=== PATIENT | male | born 1990 ===

== ENCOUNTER 2019-02-02 01:12 | Emergency (ER) | payer SELFPAY ==
[2019-02-02 01:57] VITALS: BP 145/63; PULSE 67; TEMP 98.3
[2019-02-02] MEDS ORDERED: Sodium Chloride 0.9% 1,000 ML IV STA (03:22)
[2019-02-02 03:53] VITALS: RESP 17; O2SAT 98
[2019-02-02 03:59] LABS: VENOUS BLOOD GAS BASE EXCESS 3.6 mmol/L (0.0-2.0); VENOUS BLOOD GAS PCO2 59 mmHg (40-60); VENOUS BLOOD GAS PO2 25 mm/Hg (30-55); VENOUS BLOOD PH 7.33 (7.32-7.43)
[2019-02-02 04:07] LABS: BASO % 0.4 % (0.0-2.0); EOS # 0.1 K/uL (0.0-0.7); EOS % 1.1 % (0.0-4.0); HEMOGLOBIN 14.8 g/dL (12.0-18.0); LYMPH # 2.1 K/uL (1.0-4.3); LYMPH % 23.5 % (20.0-40.0); MEAN CELL VOLUME 86.4 fl (80.0-94.0); MEAN CORPUSCULAR HEMOGLOBIN 29.6 pg (27.0-31.0); MEAN CORPUSCULAR HGB CONC 34.2 g/dL (33.0-37.0); MEAN PLATELET VOLUME 10.4 fl (7.2-11.7); MONO # 0.4 K/uL (0.0-0.8); NEUT # 6.5 K/uL (1.8-7.0); NRBC % 0.1 % (0.0-0.0); RBC 4.99 Mil/uL (4.40-5.90); RED CELL DISTRIBUTION WIDTH 13.5 % (11.5-14.5); WHITE BLOOD COUNT 9.1 K/uL (4.8-10.8)
[2019-02-02 04:16] LABS: ALB/GLOB RATIO 1.5 (1.0-2.1); ALBUMIN 4.7 g/dL (3.5-5.0); ALT/SGPT 37 U/L (21-72); AST/SGOT 31 U/L (17-59); BLOOD UREA NITROGEN 13 mg/dl (9-20); CALCIUM 9.4 mg/dL (8.4-10.2); GFR NON-AFRICAN AMERICAN > 60
--- NOTE | 2019-02-02 04:24 | ED PDOC ---
HPI: General Adult Time Seen by Provider: 02/02/19 03:11 Chief Complaint (Nursing): Dizziness/Lightheaded Chief Complaint (Provider): Dizziness History Per: Patient, Airport Representative ([facility] #[id number]) History/Exam Limitations: no limitations Onset/Duration Of Symptoms: Days Current Symptoms Are (Timing): Still Present Additional Complaint(s): 28 year old male presents to the ED for an evaluation of dizziness onset for 3 weeks. Patient reports the dizziness worsens throughout the day with light headedness and he almost fainted tonight. He states he has not had these symptom s before. Currently, he feels unsteady walking. Otherwise, he denies syncope, loss of consciousness of chest pain. PMD: no family provider Past Medical History Reviewed: Historical Data, Nursing Documentation, Vital Signs Vital Signs: Last Vital Signs Temp 98.3 F 02/02/19 01:55 Pulse 67 02/02/19 01:55 Resp 17 02/02/19 01:55 BP 145/63 02/02/19 01:55 Pulse Ox 98 02/02/19 01:55 Primary Care Provider: FAMILY PROVIDER,NO - Medical History PMH: No Chronic Diseases - Family History Family History: States: Unknown Family Hx - Allergies Allergies/Adverse Reactions: Allergies Allergy/AdvReac Type Severity Reaction Status Date / Time No Known Allergies Allergy Verified 02/02/19 01:57 Review of Systems ROS Statement: Except As Marked, All Systems Reviewed And Found Negative Cardiovascular: Positive for: Light Headedness. Negative for: Chest Pain Neurological: Positive for: Dizziness. Negative for: Headache Physical Exam - Reviewed Nursing Documentation Reviewed: Yes Vital Signs Reviewed: Yes - Physical Exam Appears: Positive for: Non-toxic, No Acute Distress. Negative for: Well (tired and weak ) Head Exam: Positive for: ATRAUMATIC, NORMAL INSPECTION, NORMOCEPHALIC Skin: Positive for: Normal Color, Warm, Dry. Negative for: Rash Eye Exam: Positive for: EOMI, Normal appearance, PERRL ENT: Positive for: Normal ENT Inspection Neck: Positive for: Normal, Painless ROM, Supple. Negative for: Decreased ROM Cardiovascular/Chest: Positive for: Regular Rate, Rhythm. Negative for: Murmur Respiratory: Positive for: Normal Breath Sounds. Negative for: Respiratory Distress Gastrointestinal/Abdominal: Positive for: Normal Exam, Soft. Negative for: Tenderness Back: Positive for: Normal Inspection Extremity: Positive for: Normal ROM. 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 Negative for: Mood/Affect, Lethargic, Listless, Motor/Sensory Deficits, Facial Droop - Laboratory Results Result Diagrams: 02/02/19 03:44 02/02/19 03:44 Lab Results: pO2 25 mm/Hg (30-55) L 02/02/19 03:56 VBG pH 7.33 (7.32-7.43) 02/02/19 03:56 VBG pCO2 59 mmHg (40-60) 02/02/19 03:56 VBG HCO3 26.2 mmol/L 02/02/19 03:56 VBG Total CO2 32.9 mmol/L (22-28) H 02/02/19 03:56 VBG O2 Sat (Calc) 46.0 % (40-65) 02/02/19 03:56 VBG Base Excess 3.6 mmol/L (0.0-2.0) H 02/02/19 03:56 VBG Potassium 4.5 mmol/L (3.6-5.2) 02/02/19 03:56 Sodium 135.0 mmol/L (132-148) 02/02/19 03:56 Chloride 102.0 mmol/L (98-107) 02/02/19 03:56 Glucose 96 mg/dL (75-110) 02/02/19 03:56 Lactate 1.0 mmol/L (0.7-2.1) 02/02/19 03:56 FiO2 21.0 % 02/02/19 03:56 Total Bilirubin 0.6 mg/dl (0.2-1.3) 02/02/19 03:44 AST 31 U/L (17-59) 02/02/19 03:44 ALT 37 U/L (21-72) 02/02/19 03:44 Alkaline Phosphatase 54 U/L (38-126) 02/02/19 03:44 Total Protein 7.8 G/DL (6.3-8.2) 02/02/19 03:44 Albumin 4.7 g/dL (3.5-5.0) 02/02/19 03:44 Globulin 3.1 gm/dL (2.2-3.9) 02/02/19 03:44 Albumin/Globulin Ratio 1.5 (1.0-2.1) 02/02/19 03:44 - ECG O2 Sat by Pulse Oximetry: 98 (RA) Pulse Ox Interpretation: Normal Medical Decision Making Medical Decision Making: Time: 320 Impression: workup for 3 weeks of dizziness with increased syncopal episodes. Will order labs and CT of head Plan: Venous blood gas shock Head w/o contrast CT EKG CMP Troponin CBC w/ differential Normal saline 1000 mls/hr Re-evaluation 0525 CT SCAN OF THE BRAIN WITHOUT IV CONTRAST CLINICAL INDICATION: Dizziness and syncope. TECHNIQUE: Axial and reformatted sagittal and coronal images of the brain obtained without IV contrast administration. Normal size of the ventricles and extra-axial spaces for the patient's age. Normal white matter tracts of the supratentorial brain. Normal basal ganglia and thalami. Normal brainstem. Normal cerebellum. There is no demonstrated extra-axial, intraparenchymal, or intraventricular hemorrhage. There are no findings of an acute ischemic infarction. Normal calvarium. There is no demonstrated fracture. Normal soft tissue structures. Normal visualized paranasal sinuses. IMPRESSION: Normal unenhanced CT scan of the brain. Electronically signed on February 02, 2019 5:25:10 AM EDT by: Lorin Shah M.D., Certified by ABR, MSK, Neuroradiology 0533 Upon provider evaluation patient is medically stable, and requires no further treatment in the ED at this time. Patient will be discharged. Counseling was provided and all questions were answered regarding diagnosis and need for follow up with neurologist and PMD. There is agreement to discharge plan. Return if symptoms persist or worsen. Scribe Attestation: Documented by Ravin Tim, acting as a scribe for Shanae Becker MD Provider Scribe Attestation: All medical record entries made by the Scribe were at my direction and personally dictated by me. I have reviewed the chart and agree that the record accurately reflects my personal performance of the history, physical exam, medical decision making, and the department course for this patient. I have also personally directed, reviewed, and agree with the discharge instructions and disposition. Disposition - Clinical Impression Clinical Impression: Dizziness of unknown cause - Disposition Referrals: [facility] [Outside] Gutierrez Sweeney MD [Medical Doctor] - Disposition: Routine/Home Disposition Time: 05:33 Condition: STABLE Additional Instructions: Follow up with the medical clinic and with the neurologist. Return to the emergency department if symptoms worsen of if new symptoms develop. Instructions: Dizziness, Nonvertigo, (DC) Forms: [facility] (Uzbek) Print Language: MALAY
--- NOTE | 2019-02-02 07:19 | CT ---
Date of service: 02/02/2019 PROCEDURE: CT HEAD WITHOUT CONTRAST. HISTORY: dizziness/syncope COMPARISON: None available. TECHNIQUE: Axial computed tomography images were obtained through the head/brain without intravenous contrast. Radiation dose: Total exam DLP = 824.77 mGy-cm. This CT exam was performed using one or more of the following dose reduction techniques: Automated exposure control, adjustment of the mA and/or kV according to patient size, and/or use of iterative reconstruction technique. FINDINGS: HEMORRHAGE: No intracranial hemorrhage. BRAIN: No mass effect or edema. No atrophy or chronic microvascular ischemic changes. VENTRICLES: Unremarkable. No hydrocephalus. CALVARIUM: Unremarkable. PARANASAL SINUSES: Unremarkable as visualized. No significant inflammatory changes. MASTOID AIR CELLS: Unremarkable as visualized. No inflammatory changes. OTHER FINDINGS: None. IMPRESSION: No evidence of acute intracranial hemorrhage mass effect or midline shift. Preliminary report was submitted by [facility] Radiology contains concordant findings.
--- NOTE | 2019-02-02 10:49 | CARD ---
APPROVED REPORT Date of service: 02/02/2019 EKG Measurement Heart [id number] <Conclusion> Sinus bradycardia Otherwise normal ECG
== END 2019-02-02 05:50 | disposition home or self-care (01) ==
LOC: H.ER 01:12
DX: R42 Dizziness and giddiness (principal)
CPT/HCPCS: 70450; 80053; 82803; 84484; 85025; 93005; 96360; 99283; J7030